=== PATIENT | female | born 1975 | race Caucasian/White ===

== ENCOUNTER 2016-08-17 03:06 | Emergency (ER) | payer BC ==
[~2016-08-17] VITALS: Ht 167.6 cm; Wt 80.0 kg
[~2016-08-17 03:06] MED LIST: LORTA5 PO
[2016-08-17 03:09] VITALS: BP 175/83; PULSE 75; RESP 14; TEMP 98.6; O2SAT 98
--- NOTE | 2016-08-17 03:47 | PD ---
HPI Chief Complaint: Complaint Time Seen by Provider: 03:28 Travel History International Travel<30 days: No Contact w/Intl Traveler<30days: No Traveled to known affect area: No History of Present Illness HPI 41-year-old female complains of dysuria frequency hematuria and left lower quadrant abdominal pain and pelvic pain. Patient states that she started having dysuria and frequency and hematuria about 2 weeks ago. Patient was seen at local urgent care and given prescription for Cipro for 1 week. Patient took the Cipro as directed. Patient states that she had persistent symptoms despite taking Cipro. Patient was seen by personal physician and even prescription for 1 week of Macrodantin. Patient took the Macrodantin and still having symptoms. Patient was seen by urologist Dr. Hunter. Patient was advised that she may have urethritis and may need urethral dilatation procedure. Patient states that she started noticing moderate amount of blood when she went to the bathroom tonight and noticed blood on the toilet paper. Patient is not sure whether it came from the urine or vaginal area. Patient states the pain is sharp stabbing pain localized to left lower abdomen pelvic area. Patient states the pain radiates to the back. Patient denies any fever chills. On a scale of 1-10 the pain is a 7. Patient is status post appendectomy, cholecystectomy, . PFSH Past Medical History Medical History: Denies Significant Hx Cardiovascular Problems: No Tetanus Vaccination: < 5 Years Influenza Vaccination: No ?: Not LMP: 07/27/16 Past Surgical History Appendectomy: Yes Section: Yes (x1) Cholecystectomy: Yes Gynecologic Surgery: Yes (1 ) Social History Alcohol Use: Yes (RARE) Tobacco Use: No Substance Use: No Allergies-Medications (Allergen,Severity, Reaction): Coded Allergies: Penicillin (Verified Allergy, Severe, 08/17/16) Levaquin (Verified Allergy, Intermediate, NAUSEA/ COLD SWEAT, 08/17/16) Reported Meds & Prescriptions Reported Meds & Active Scripts Active Review of Systems General / Constitutional: No: Fever Eyes: No: Visual changes HENT: No: Headaches Cardiovascular: No: Chest Pain or Discomfort Respiratory: No: Shortness of Breath Gastrointestinal: Positive: Abdominal Pain Genitourinary: Positive: Hematuria, Pelvic Pain, Vaginal Bleeding, No: Dysuria Musculoskeletal: No: Pain Skin: No Rash Neurologic: No: Weakness Psychiatric: No: Depression Endocrine: No: Polydipsia Hematologic/Lymphatic: No: Easy Bruising Physical Exam Narrative GENERAL: Well-nourished, well-developed patient. SKIN: Focused skin assessment warm/dry. HEAD: Normocephalic. EYES: No scleral icterus. No injection or drainage. NECK: Supple, trachea midline. No JVD or lymphadenopathy. CARDIOVASCULAR: Regular rate and rhythm without murmurs, gallops, or rubs. RESPIRATORY: Breath sounds equal bilaterally. No accessory muscle use. GASTROINTESTINAL: Abdomen soft, non-tender, nondistended. MUSCULOSKELETAL: No cyanosis, or edema. BACK: Nontender without obvious deformity. No CVA tenderness. 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: Data Data Last Documented VS Vital Signs Date Time Temp Pulse Resp B/P Pulse Ox O2 Delivery O2 Flow Rate FiO2 08/17/16 03:57 96 08/17/16 03:09 98.6 75 14 175/83 Room Air Orders Complete Blood Count With Diff (08/17/16 03:40) Comprehensive Metabolic Panel (08/17/16 03:40) Urinalysis - C+S If Indicated (08/17/16 03:40) Ct Abd/Pel W/O Iv Contrast (08/17/16 03:40) Iv Access Insert/Monitor (08/17/16 03:40) Ecg Monitoring (08/17/16 03:40) Oximetry (08/17/16 03:40) Ed Urine Pregnancytest Poc (08/17/16 03:40) Urine Culture (08/17/16 03:50) Gc And Chlamydia Pcr (08/17/16 05:01) Wet Prep Profile (08/17/16 05:01) Labs Laboratory Tests Test 08/17/16 03:50 White Blood Count 4.7 TH/MM3 Red Blood Count 4.86 MIL/MM3 Hemoglobin 14.9 GM/DL Hematocrit 45.0 % Mean Corpuscular Volume 92.8 FL Mean Corpuscular Hemoglobin 30.6 PG Mean Corpuscular Hemoglobin 33.0 % Concent Red Cell Distribution Width 13.0 % Platelet Count 151 TH/MM3 Mean Platelet Volume 8.4 FL Neutrophils (%) (Auto) 57.6 % Lymphocytes (%) (Auto) 33.9 % Monocytes (%) (Auto) 6.5 % Eosinophils (%) (Auto) 1.3 % Basophils (%) (Auto) 0.7 % Neutrophils # (Auto) 2.7 TH/MM3 Lymphocytes # (Auto) 1.6 TH/MM3 Monocytes # (Auto) 0.3 TH/MM3 Eosinophils # (Auto) 0.1 TH/MM3 Basophils # (Auto) 0.0 TH/MM3 CBC Comment DIFF FINAL Differential Comment Urine Color DARK-YELLOW Urine Turbidity HAZY Urine pH 7.5 Urine Specific [place] 1.014 Urine Protein TRACE mg/dL Urine Glucose (UA) NEG mg/dL Urine Ketones NEG mg/dL Urine Occult Blood LARGE Urine Nitrite NEG Urine Bilirubin NEG Urine Urobilinogen LESS THAN 2.0 MG/DL Urine Leukocyte Esterase LARGE Urine RBC /hpf Urine WBC 100 /hpf Urine Squamous Epithelial 17 /hpf Cells Urine Mucus FEW /lpf Microscopic Urinalysis Comment CULTURE INDICATED Sodium Level 140 MEQ/L Potassium Level 3.3 MEQ/L Chloride Level 105 MEQ/L Carbon Dioxide Level 25.9 MEQ/L Anion Gap 9 MEQ/L Blood Urea Nitrogen 7 MG/DL Creatinine 0.73 MG/DL Estimat Glomerular Filtration 88 ML/MIN Rate Random Glucose 83 MG/DL Calcium Level 8.5 MG/DL Total Bilirubin 1.9 MG/DL Aspartate Amino Transf 11 U/L (AST/SGOT) Alanine Aminotransferase 21 U/L (ALT/SGPT) Alkaline Phosphatase 43 U/L Total Protein 7.3 GM/DL Albumin 4.1 GM/DL MDM Medical Decision Making Medical Screen Exam Complete: Yes Emergency Medical Condition: Yes Interpretation(s) Last Impressions Abdomen/Pelvis CT 08/17/16 0340 Signed Impressions: Service Date/Time: Wednesday, August 17, 2016 04:03 - CONCLUSION: 1. 2.1 cm cystic structure in the left adnexa containing fat suggestive of a dermoid cyst. This is not significantly changed compared to 2013. 2. Trace of fluid in the cul-de-sac. 3. Probable small calcified fibroid along the top of the uterus. Stable compared to 2013. 4. No other new or significant changes. Bart Drake MD 5:10 AM. CBC within normal limit. Potassium 3.3. Total bili 1.9. UA positive for RBC, WBC. Differential Diagnosis Differential diagnosis including UTI, urethritis, pyelonephritis, nephrolithiasis, cervicitis, PID, ovarian cysts, rare intorsion, ectopic . Narrative Course 41-year-old female with left lower quadrant abdominal pain, left-sided pelvic pain, dysuria or frequency hematuria and possible vaginal bleeding. Diagnosis Primary Impression: Urethritis Additional Impression: Dysmenorrhea Patient Instructions: General Instructions Additional Instructions: Take medications as directed. 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 Return if worse. Med/Other Pt SpecificInfo: Prescription(s) given Scripts Phenazopyridine (Pyridium)200 Mg [id number] Mg PO Q8H PRN (DYSURIA) #21 TAB Ref 0 Prov:Devang Zavala MD 08/17/16 Sulfamethoxazole-Trimethoprim (Bactrim DS)800-160 Mg Tab1 Tab PO BID #20 TAB Prov:Devang Zavala MD 08/17/16 Tramadol (Ultram)50 Mg Tab50 Mg PO Q6H PRN (PAIN) #30 TAB Prov:Devang Zavala MD 08/17/16 Meloxicam (Mobic)15 Mg Tab15 Mg PO DAILY #20 TAB Prov:Devang Zavala MD 08/17/16 Disposition: 01 DISCHARGE HOME Condition: Stable Devang Zavala MD August 17, 2016 03:47
[2016-08-17 03:57] VITALS: O2SAT 96
[2016-08-17 04:05] LABS: AUTOMATED NEUTROPHIL # 2.7 TH/MM3 (1.8-7.7); BASOPHIL % 0.7 % (0.0-2.0); EOSINOPHIL # 0.1 TH/MM3 (0-0.4); EOSINOPHIL % 1.3 % (0.0-4.0); HEMO FLAGS DIFF FINAL; LYMPH % 33.9 % (9.0-44.0); LYMPHOCYTE # 1.6 TH/MM3 (1.0-4.8); MEAN CELL VOLUME 92.8 FL (80.0-100.0); MEAN CORPUSCULAR HEMOGLOBIN 30.6 PG (27.0-34.0); MONO % 6.5 % (0.0-8.0); NEUT % 57.6 % (16.0-70.0); PLATELET COUNT 151 TH/MM3 (150-450); RED BLOOD COUNT 4.86 MIL/MM3 (4.00-5.30); WHITE BLOOD COUNT 4.7 TH/MM3 (4.0-11.0)
[2016-08-17 04:14] LABS: BLOOD, URINE LARGE (NEG); COMMENT (UR) CULTURE INDICATED; CULTURE IF INDICATED CULTURE INDICATED; GLUCOSE,URINE NEG (NEG); KETONE, URINE NEG (NEG); MUCUS URINE FEW /lpf (OCC); NITRITE,URINE NEG (NEG); PH, URINE 7.5 (5.0-8.5); SQUAMOUS EPITHELIAL CELL URINE 17 /hpf (0-5); URINE COLOR DARK-YELLOW (YELLW/STRAW)
[2016-08-17 04:17] LABS: ANION GAP 9 MEQ/L (5-15); AST (GOT) 11 U/L (15-37); BICARBONATE 25.9 MEQ/L (21.0-32.0); BLOOD UREA NITROGEN 7 MG/DL (7-18); CHLORIDE 105 MEQ/L (98-107); GLOMERULAR FILTRATION RATE 88 ML/MIN (>89); POTASSIUM 3.3 MEQ/L (3.5-5.1); SODIUM (NA) 140 MEQ/L (136-145)
[2016-08-17 04:20] LABS: ALKALINE PHOSPHATASE 43 U/L (45-117); ALT (GPT) 21 U/L (10-53); TOTAL BILIRUBIN ADULT 1.9 MG/DL (0.2-1.0)
--- NOTE | 2016-08-17 04:53 | RADRPT ---
EXAM DATE/TIME: 08/17/2016 04:03 [facility] COMPARISON: CT ABDOMEN & PELVIS W CONTRAST, June 16, 2013, 6:19. INDICATIONS : Left lower qaudrant pain. ORAL CONTRAST: Partial prescribed oral contrast ingested. RADIATION DOSE: 13.58 CTDIvol (mGy) MEDICAL HISTORY : None SURGICAL HISTORY : Appendectomy. Cholecystectomy. section. ENCOUNTER: Initial ACUITY: 1 day PAIN SCALE: 6/10 LOCATION: Left lower quadrant TECHNIQUE: Volumetric scanning of the abdomen and pelvis was performed. Using automated exposure control and ad justment of the mA and/or kV according to patient size, radiation dose was kept as low as reasonably achievable to obtain optimal diagnostic quality images. The lack of IV contrast limits the diagnosis for certain organ pathology. FINDINGS: LOWER LUNGS: The visualized lower lungs are clear. LIVER: Homogeneous density without lesion. There is no dilation of the biliary tree. No gallbladder surgic ally removed.. SPLEEN: Normal size without lesion. PANCREAS: Within normal limits. KIDNEYS: Normal in size and shape. There is no mass, stone, or hydronephrosis. ADRENAL GLANDS: Within normal limits. VASCULAR: There is no aortic aneurysm. BOWEL/MESENTERY: The stomach, small bowel, and colon demonstrate no acute abnormality. There is no free intraperitone al air or fluid. No inflammatory changes. ABDOMINAL WALL: Within normal limits. RETROPERITONEUM: There is no lymphadenopathy. BLADDER: No wall thickening or mass. REPRODUCTIVE: The uterus is within normal limits for size. Small calcification on the superior surface of the uteru s. There is a 2.1 cm cystic structure left adnexa containing fat. This is suggestive of a dermoid cys t. There is a trace of fluid in the cul-de-sac. INGUINAL: There is no lymphadenopathy or hernia. MUSCULOSKELETAL: Within normal limits for patient age. CONCLUSION: 1. 2.1 cm cystic structure in the left adnexa containing fat suggestive of a dermoid cyst. This is no t significantly changed compared to 2013. 2. Trace of fluid in the cul-de-sac. 3. Probable small calcified fibroid along the top of the uterus. Stable compared to 2013. 4. No other new or significant changes. Bart Drake MD on August 17, 2016 at 4:46 Board Certified Radiologist. This report was verified electronically.
[2016-08-17] MEDS ORDERED: BACT800T5 PO (05:18)
[2016-08-17] MEDS ORDERED: ULTR50TA5 PO (05:18)
[2016-08-17] MEDS ORDERED: MOBI15TA PO (05:18)
[2016-08-17] MEDS ORDERED: PYRI200T4 PO (05:19)
[2016-08-17 05:36] VITALS: BP 129/70
[2016-08-17 09:47] LABS: CHLAMYDIA PCR NOT DETECTED (NOT DETECT); NEISSERIA PCR NOT DETECTED (NOT DETECT)
== END 2016-08-17 05:38 | disposition home or self-care (01) ==
LOC: NEPC 03:06
DX: Z88.0 Allergy status to penicillin (principal); N34.2 Other urethritis; N94.6 Dysmenorrhea, unspecified; B96.89 Other specified bacterial agents as the cause of diseases classified elsewhere
CPT/HCPCS: 74176; 80053; 81001; 84703; 85025; 87086; 87210; 87491; 87591